=== PATIENT | female | born 1970 | race Caucasian/White ===

== ENCOUNTER → 2016-12-18 | Outpatient (CLI) | payer OTHER | LOC: FIMAGING 08:04 | PROVIDERS: ATTEND Surgery | DX: K46.9 Unspecified abdominal hernia without obstruction or gangrene (principal); E65 Localized adiposity ==

== ENCOUNTER → 2017-05-21 | Outpatient (CLI) | payer OTHER | LOC: FIMAGING 08:11 | PROVIDERS: ATTEND Obstetrics & Gynecology Gynecology | DX: Z12.31 Encounter for screening mammogram for malignant neoplasm of breast (principal) | CPT/HCPCS: G0202 ==

== ENCOUNTER → 2017-05-27 | Outpatient (CLI) | payer OTHER | LOC: FIMAGING 09:05 | PROVIDERS: ATTEND Obstetrics & Gynecology Gynecology | DX: R92.8 Other abnormal and inconclusive findings on diagnostic imaging of breast (principal) | CPT/HCPCS: G0206 ==

== ENCOUNTER 2019-01-21 10:29 | Emergency (ER) | payer SELFPAY ==
[2019-01-21 10:41] VITALS: BP 122/66
[2019-01-21] MEDS ORDERED: TDAP ADULT 0.5 ML INJ (BOOSTRIX) IM ONE (11:00)
[2019-01-21] MEDS ORDERED: LET GEL TOPICAL 1 EA SYR TP ONE (11:00)
--- NOTE | 2019-01-21 11:03 | EDPHY ---
H & P Stated Complaint: skinned shins of wooden box at gym Time Seen by Provider: 01/21/19 10:59 HPI/ROS: HPI: This is a 48-year-old female who presents with Chief Complaint: skinned shins of wooden box at gym Location: Bilateral anterior lower legs Quality: Injury Duration: 1 hr prior to arrival Signs and Symptoms: + bleeding, no radiation, no numbness, no weakness, no tingling, no incontinence, no decreased range of motion, no swelling, + pain, no fever Timing: Acute Severity: [id number] Context: Patient was at the gym exercising, performing plyometrics, including jumping up and down onto wooden boxes. She reports that when she jumped up onto the wooden box she missed her step and skin her bilateral anterior lower legs. She reports that she felt immediate pain in the area started to bleed. She applied direct pressure and the bleeding stopped. She is unsure of her tetanus status. She denies any decreased range of motion, radiculopathy, swelling, pain at the present moment. Modifying Factors: Direct pressure Comment: ROS: A comprehensive 10 system review of systems is otherwise negative aside from elements mentioned in the history of present illness. MEDICAL/SURGICAL/SOCIAL HISTORY: Medical history: Generally healthy. Does not take any regular medications. LMP over 28 days ago. Surgical history: Denies Social history: Never smoked. Employed. CONSTITUTIONAL: Physically fit adult white female, awake and alert, no obvious distress HEENT: Atraumatic and normocephalic, PERRL, EOMI. Nares patent; no rhinorrhea; no nasal mucosal edema. Tympanic membranes clear. Oropharynx clear, no exudate and moist pink mucosa. Airway patent. No lymphadenopathy. No meningismus. Cardiovascular: Normal S1/S2, regular rate, regular rhythm, without murmur rub or gallop. PULMONARY/CHEST: Symmetrical and nontender. Clear to auscultation bilaterally. Good air movement. No accessory muscle usage. ABDOMEN: Soft, nondistended, nontender, no rebound, no guarding, no peritoneal signs, no masses or organomegaly. No CVAT. EXTREMITIES: 2/2 pulses, strength 5/5, bilateral knees and ankles have full range of motion. no deformities, no clubbing, no cyanosis or edema. NEUROLOGICAL: no focal neuro deficits. GCS 15. SKIN: Warm and dry, anterior lower richards 2-3 cm vertical abrasions with no active bleeding. no erythema. no rash. Good capillary refill. Source: Patient Exam Limitations: No limitations - Personal History LMP (Females 10-55): Over 28 Days Ago Current Tetanus/Diphtheria Vaccine: Unsure Current Tetanus Diphtheria and Acellular Pertussis (TDAP): Unsure - Medical/Surgical History Hx Asthma: No Hx Chronic Respiratory Disease: No Hx Diabetes: No Hx Cardiac Disease: No Hx Renal Disease: No Hx Cirrhosis: No Hx Alcoholism: No Hx HIV/AIDS: No Hx Splenectomy or Spleen Trauma: No Other PMH: healthy per pt - Social History Smoking Status: Never smoked Constitutional: Initial Vital Signs Temperature (C) 36.4 C 01/21/19 10:37 Heart Rate 67 01/21/19 10:37 Respiratory Rate 15 01/21/19 10:37 Blood Pressure 122/66 H 01/21/19 10:37 O2 Sat (%) 97 01/21/19 10:37 O2 Delivery Mode Room Air Allergies/Adverse Reactions: No Known Allergies Allergy (Unverified 05/27/13 08:01) Home Medications: Medication Instructions Recorded "Supplements" 06/22/11 Medical Decision Making ED Course/Re-evaluation: Vital signs reviewed and stable upon arrival. Tetanus booster ordered Let topical applied and copiously irrigated No indication for x-ray imaging Mastisol and Steri-Strips applied. Written and verbal instructions provided. No indication for suture placement. No signs of neurovascular compromise/tenting of skin/compartment syndrome/ extremities and joints examined above and below area of concern and are neurovascularly intact. This patient was seen under the supervision of my secondary supervising physician. I evaluated care for this patient with attending. Differential Diagnosis: Differential diagnosis includes but is not limited to contusion, fracture, abrasion, laceration. - Data Points Medications Given: Discontinued Medications Diphtheria/Tetanus/Acell Pertussis (Boostrix) 0.5 ml IM .ONCE ONE Stop: 01/21/19 11:01 Last Admin: 01/21/19 11:09 Dose: 0.5 ml Tetracaine/Epinephrine/Lidocaine (Let Gel Topical) 1 ea TP ONCE ONE Stop: 01/21/19 11:01 Last Admin: 01/21/19 11:09 Dose: 1 ea Departure - Departure Disposition: Home, Routine, Self-Care Clinical Impression: Abrasion of skin Condition: Good Instructions: Abrasion (ED), Skin Tear (ED) Additional Instructions: Allow the Steri-Strips to fall off on their own. Keep the dressing dry and in place for 48 hours. After 48 hours, you may remove the dressing; wash the site daily with mild soap and water; then pat dry. Apply topical antibiotic ointment and keep covered with sterile dressing until fully healed. Do not soak in a bathtub or go swimming until sutures are removed. Take Tylenol 650 mg every 4 hours and/or Ibuprofen 600 mg every 8 hours with food as needed for pain. Apply ice for 30 minutes at a time; 2-3 times per day for the next 1-2 days. Return to the ER immediately if you experience redness, red streaks, have fevers /chills, flu like symptoms, limited range of motion, or any other symptoms that concern you. Referrals: Rocoi Baez MD [Primary Care Provider] - As per Instructions
== END 2019-01-21 11:57 | disposition home or self-care (01) ==
DX: S80.812A Abrasion, left lower leg, initial encounter (principal); S80.811A Abrasion, right lower leg, initial encounter; Y93.B9 Activity, other involving muscle strengthening exercises; Y92.39 Other specified sports and athletic area as the place of occurrence of the external cause